=== PATIENT | male | born 1940 | race Caucasian/White ===

== ENCOUNTER 2018-11-14 00:24 | Observation (INO) | payer MEDICARE ==
[2018-11-14 00:34] VITALS: RESP 18
--- NOTE | 2018-11-14 01:10 | ED ---
Chest Pain HPI - General Chief Complaint: Chest Pain Stated Complaint: Weakness, Chest Discomfort Time Seen by Provider: 11/14/18 00:42 Source: patient, family Mode of arrival: ambulatory Limitations: no limitations - History of Present Illness Initial Comments: Everardo is a 77-year-old gentleman who presents to the emergency department today for evaluation of chest pressure and lightheadedness. Patient reports he woke from sleep around midnight to use the restroom upon getting up to walk to the restroom patient reports he felt some tightness in his chest and felt very lightheaded. Patient has no history of any cardiac disease but became concerned by these symptoms and came to the ER. Patient reports that upon resting in the ER agustorney he's feeling much better. - Related Data Allergies Allergy/AdvReac Type Severity Reaction Status Date / Time No Known Allergies Allergy Verified 11/14/18 00:34 Review of Systems ROS Statement: Those systems with pertinent positive or pertinent negative responses have been documented in the HPI. ROS Other: All systems not noted in ROS Statement are negative. EKG Findings - EKG Comments: EKG Findings:: EKG was obtained due to complaint of chest pressure, EKG was obtained at 12:42 AM, rate is 76 rhythm is sinus with an AV block as well as bifascicular block. AZ is prolonged to 10, QRS is 108, QTC is 427. There is no acute ST elevations or depressions there is no evidence of acute ischemia or infarction. There are no previous EKGs in our system for comparison. Past Medical History Past Medical History: No Reported History History of Any Multi-Drug Resistant Organisms: None Reported Past Surgical History: Hernia Repair, Orthopedic Surgery Past Psychological History: No Psychological Hx Reported Smoking Status: Never smoker Past Alcohol Use History: None Reported Past Drug Use History: None Reported General Exam Limitations: no limitations Course Vital Signs 11/14/18 11/14/18 00:29 01:15 Temperature 97.7 F Pulse Rate 83 71 Respiratory 18 18 Rate Blood Pressure 166/86 168/98 O2 Sat by Pulse 96 97 Oximetry Chest Pain MDM - Core Measures AMI Core Measures Followed: Yes - MDM Patient was seen and evaluated history is obtained from the patient and sinuses 77-year-old gentleman who experienced chest pressure and lightheadedness when ambulating. He has no cardiac history EKG does show a prolonged AZ and bifascicular block with no previous for comparison. This patient given his age is very high risk for cardiac etiology of his chest pressure therefore we will plan observation area patient care was discussed with Sound physician Dr. Mackenzie per patient's primary care physician preference. He agrees with plan for admission for cardiac rule out. Disposition Clinical Impression: Chest pain Disposition: ADMITTED IP TO THIS HOSP Condition: Stable Is patient prescribed a controlled substance at d/c from ED?: No
[2018-11-14] MEDS ORDERED: NITROGLYCERIN SL TABS 0.4 MG TAB SUBLINGUAL PRN (01:23)
[2018-11-14] MEDS ORDERED: ASPIRIN 81 MG PO STA (01:23)
[2018-11-14 01:30] LABS: ALT 18 U/L (21-72); AST 22 U/L (17-59); African American GFR (CKD) >90 (>60 ml/min/1.73 sqM); Albumin 4.5 g/dL (3.5-5.0); Alkaline Phosphatase 106 U/L (38-126); Anion Gap 10 mmol/L; Blood Urea Nitrogen 17 mg/dL (9-20); Carbon Dioxide 27 mmol/L (22-30); Chloride 105 mmol/L (98-107); Glucose 105 mg/dL (74-99); Magnesium 2.1 mg/dL (1.6-2.3); Potassium 3.9 mmol/L (3.5-5.1); Sodium 142 mmol/L (137-145); Total Bilirubin 0.5 mg/dL (0.2-1.3); Total Protein 7.4 g/dL (6.3-8.2)
[2018-11-14 01:31] LABS: Basophils # (A) 0.1 k/uL (0-0.2); Basophils % (A) 1 %; Eosinophils # (A) 0.2 k/uL (0-0.7); Eosinophils % (A) 3 %; HCT 48.7 % (39.0-53.0); HGB 16.8 gm/dL (13.0-17.5); Lymphocytes # (A) 2.5 k/uL (1.0-4.8); Lymphocytes % (A) 38 %; MCH 32.7 pg (25.0-35.0); MCHC 34.4 g/dL (31.0-37.0); MCV 95.2 fL (80.0-100.0); Mean Platelet Volume 6.4; Monocytes # (A) 0.6 k/uL (0-1.0); Monocytes % (A) 9 %; Neutrophils # (A) 3.1 k/uL (1.3-7.7); Neutrophils % (A) 47 %; Partial Thromboplastin Time 26.1 sec (22.0-30.0); Platelet Count 310 k/uL (150-450); Prothrombin Time 10.6 sec (9.0-12.0); RBC 5.12 m/uL (4.30-5.90); RDW 12.6 % (11.5-15.5); WBC 6.5 k/uL (3.8-10.6)
--- NOTE | 2018-11-14 02:03 | XR ---
EXAM: XR Chest, 2 Views CLINICAL HISTORY: ITS.REASON XR Reason: Chest Pain TECHNIQUE: Frontal and lateral views of the chest. COMPARISON: No relevant prior studies available. IMPRESSION: Normal heart. No consolidation or pleural effusion. 6-9 posterior right-sided rib fractures, age indeterminate.
[2018-11-14] MEDS ORDERED: amLODIPine 5 MG TAB PO SCH (02:30)
--- NOTE | 2018-11-14 02:38 | P.HPIM ---
History of Present Illness H&P Date: 11/14/18 Chief Complaint: chest pain 77-year-old male without significant past medical history Patient comes in today due to sudden onset chest pain. He reports that he went to bed feeling fine around 10 PM. However he woke up in the middle of night to the bathroom this when he felt chest pressure he rated it as 3-5 out of 10 in severity and felt very lightheaded however denies any associated nausea vomiting sweating or heart racing. Pain was initially retrosternal and then started radiating to both right and left side. Patient was concerned and decided come to the hospital for evaluation. He otherwise denies any cardiac history he reports that he had some cardiac testing many years ago which came back negative. Denies any history of diabetes kidney problems are hyperlipidemia denies any history of hypertension he doesn't take any medications at home. Patient otherwise denies any abdominal pain nausea vomiting or GI bleeding. Initial workup in the ED was negative patient admitted for chest pain to rule out acute cardiac syndrome Review of Systems Pertinent positives as noted in HPI. All other systems were reviewed and are neg ative Past Medical History Past Medical History: No Reported History History of Any Multi-Drug Resistant Organisms: None Reported Past Surgical History: Hernia Repair, Orthopedic Surgery Past Psychological History: No Psychological Hx Reported Smoking Status: Never smoker Past Alcohol Use History: None Reported Past Drug Use History: None Reported - Past Family History Family Additional Family Medical History / Comment(s): Denies family history of CAD Medications and Allergies Allergies Allergy/AdvReac Type Severity Reaction Status Date / Time No Known Allergies Allergy Verified 11/14/18 00:34 Physical Exam Vitals: Vital Signs Temp Pulse Resp BP Pulse Ox 11/14/18 01:15 71 18 168/98 97 11/14/18 00:29 97.7 F 83 18 166/86 96 Intake and Output 11/13/18 11/13/18 11/14/18 14:59 22:59 06:59 Other: Weight 72.575 kg Constitutional: No acute distress, conversant, pleasant Eyes: Anicteric sclerae, moist conjunctiva, no lid-lag Pupils equal round reactive to light ENMT: NC/AT Oropharynx clear, no erythema, or exudates Neck: Supple, FROM, no masses, or JVD No carotid bruits No thyromegaly Lungs: Clear to auscultation Clear to percussion Normal respiratory effort, no accessory muscle use Cardiovascular: Heart regular in rate and rhythm, No murmurs, gallops, or rubs No peripheral edema Abdominal: Soft Nontender, no guarding, rebound or rigidity Abdomen moving with respiration Normoactive bowel sounds No hepatomegaly, No splenomegaly No palpable mass No abdominal wall hernia noted Skin: Normal temperature, tone, texture, turgor No induration No subcutaneous nodules No rash, lesions No ulcers Extremities: No digital cyanosis No clubbing Pedal pulses intact and symmetrical Radial pulses intact and symmetrical No calf tenderness Psychiatric: Alert and oriented to person, place and time Appropriate affect fair judgement Neuro Muscles Strength 5/5 in all 4 extremities Sensation to light touch grossly present throughout Cranial nerves II-XII grossly intact No focal sensory deficits Lymphatics: no palpable cervical or supraclavicular , or inguinal lymph nodes Results CBC & Chem 7: 11/14/18 01:00 11/14/18 01:00 Labs: Abnormal Lab Results - Last 24 Hours (Table) 11/14/18 Range/Units 01:00 Glucose 105 H (74-99) mg/dL ALT 18 L (21-72) U/L Assessment and Plan Assessment: 77-year-old male with no past medical history admitted under observation with anticipated length of stay less than 2 midnights for chest pain to rule out acute coronary syndrome patient also have elevated blood pressure Plan: Chest pain rule out ACS EKG showed normal sinus rhythm Initial troponins negative Cardiac monitoring Trend cardiac enzymes Continue with aspirin Check lipid profile Cardiology consult Nitro when necessary Elevated blood pressure without diagnosis of hypertension Start patient on low-dose amlodipine 2.5 mg CODE STATUS: Full code DVT prophylaxis: Heparin subcu 3 times a day* Discussed with: Patient, ER, RN Anticipated length of stay of less than [address]: Home A total of 60 minutes was spent on the care of this complex patient more than 50% of the time was spent in counseling and care coordination.
--- NOTE | 2018-11-14 02:41 | P.HPADDEND ---
H&P Addendum H&P Addendum Date: 11/14/18 Advanced Care Planning Active diagnoses: Chest pain rule out acute cardiac syndrome Background: The patient was admitted for treatment of chest pain atypical features rule out acute coronary syndrome. Confirmation and clarification of wishes upon admission. Discussion: Person(s) present and participating in discussion: The patient, and myself Summary: I had a discussion with the patient who has advanced age without any other medical problems. However he lives alone he is able to take care of himself. Patient was not interested in any rehab placement or home health care if needed. He reports that he's feeling fine he is able to manage his own needs at home. He has his son who checks on him. I explained to the patient will do some workup to rule out acute coronary syndrome due to concerns with the atypical chest pain that he was experiencing. Patient elected to be a full code in case of cardiopulmonary arrest and named his son Kalia as a surrogate decision-maker. Patient is hoping that he will get better and be discharged home as soon as possible. Time spent: Total time spent face to face in education and discussion directly related to advanced care plannin minutes
[2018-11-14 03:53] VITALS: BMI 26.6
[2018-11-14] MEDS ORDERED: PANTOPRAZOLE 40 MG TABLET PO SCH (07:30)
[2018-11-14] MEDS ORDERED: HEPARIN SODIUM,PORCINE 5,000 UNIT/ML 1 ML VIAL SQ SCH (08:00)
--- NOTE | 2018-11-14 10:25 | ECHOF ---
Referral Reason:chest pain MEASUREMENTS -------- HEIGHT: 165.1 cm WEIGHT: 72.6 kg BP: 137/77 RVIDd: 3.1 cm (< 3.3) IVSd: 1.3 cm (0.6 - 1.1) LVIDd: 3.8 cm (3.9 - 5.3) LVPWd: 1.3 cm (0.6 - 1.1) IVSs: 1.7 cm LVIDs: 2.6 cm LVPWs: 1.8 cm LA Diam: 2.8 cm (2.7 - 3.8) LAESV Index (A-L): 20.24 ml/m Ao Diam: 3.6 cm (2.0 - 3.7) AV Cusp: 2.1 cm (1.5 - 2.6) MV EXCURSION: 14.273 mm (> 18.000) MV EF SLOPE: 47 mm/s (70 - 150) EPSS: 0.4 cm MV E Oscar: 0.86 m/s MV DecT: 237 ms MV A Oscar: 0.90 m/s MV E/A Ratio: 0.96 RAP: 5.00 mmHg RVSP: 33.67 mmHg FINDINGS -------- Sinus rhythm. This was a technically adequate study. The left ventricular size is normal. There is mild concentric left ventricular hypertrophy. Overa ll left ventricular systolic function is normal with, an EF between 60 - 65 %. The right ventricle is normal in size. Normal LA size by volume 22+/-6 ml/m2. The right atrium is normal in size. Interatrial and interventricular septum intact. The aortic valve is trileaflet and appears structurally normal. Mild mitral annular calcification present. There is trace to mild mitral regurgitation. Mild tricuspid regurgitation present. There is borderline pulmonary hypertension. The right ventr icular systolic pressure, as measured by Doppler, is 33.67mmHg. Trace/mild (physiologic) pulmonic regurgitation. The aortic root size is normal. Normal inferior vena cava with normal inspiratory collapse consistent with estimated right atrial pre ssure of 5 mmHg. There is no pericardial effusion. CONCLUSIONS -------- 1. Sinus rhythm. 2. This was a technically adequate study. 3. The left ventricular size is normal. 4. There is mild concentric left ventricular hypertrophy. 5. Overall left ventricular systolic function is normal with, an EF between 60 - 65 %. 6. The right ventricle is normal in size. 7. Normal LA size by volume 22+/-6 ml/m2. 8. The right atrium is normal in size. 9. Interatrial and interventricular septum intact. 10. The aortic valve is trileaflet and appears structurally normal. 11. Mild mitral annular calcification present. 12. There is trace to mild mitral regurgitation. 13. Mild tricuspid regurgitation present. 14. There is borderline pulmonary hypertension. 15. The right ventricular systolic pressure, as measured by Doppler, is 33.67mmHg. 16. Trace/mild (physiologic) pulmonic regurgitation. 17. The aortic root size is normal. 18. Normal inferior vena cava with normal inspiratory collapse consistent with estimated right atrial pressure of 5 mmHg. 19. There is no pericardial effusion. FIELD CROP HARVEST WORKER: Catarina Murray RDCS
[2018-11-14 11:15] LABS: Cholesterol 250 mg/dL (<200); HDL Cholesterol 39 mg/dL (40-60); LDL Cholesterol,Calculated 136 mg/dL (0-99); Triglycerides 373 mg/dL (<150)
--- NOTE | 2018-11-14 11:29 | ECHOS ---
STRESS ECHOCARDIOGRAM DATE OF SERVICE: 11/14/2018 INDICATIONS: Chest pain. MEDICATIONS: BASELINE HEART RATE: 72 BASELINE BLOOD PRESSURE: 161/87 MAXIMUM HEART RATE: 157 MAXIMUM BLOOD PRESSURE: 205/68 85% MPHR: 144 100% MPHR: 144 METS: 7 MAXIMUM STAGE REACHED: II TOTAL EXERCISE TIME: 6 minutes CLINICAL INFORMATION: Baseline EKG shows sinus rhythm, normal axis, normal intervals. Patient exercised on Elvis protocol for a total of 6 minutes, achieving 7 METs, 100% of predicted maximal heart rate without chest pain or diagnostic ST-segment depression. Baseline echo shows normal left ventricular size, wall motion and systolic function. Postexercise, there is normal hyperdynamic response of all segments of myocardium noted. CONCLUSIONS: 1. Average exercise tolerance. 2. Negative stress test by EKG criteria. 3. Negative stress echo. MMODL / IJN: [id number] /
[2018-11-14 11:45] VITALS: BP 157/93; PULSE 93; TEMP 98
--- NOTE | 2018-11-14 12:32 | P.DS ---
Providers Date of admission: 11/14/18 01:27 Expected date of discharge: 11/14/18 Attending physician: Vasu Vieyra MD Consults: 11/14/18 01:24 Consult Physician Urgent Consulting Provider: [facility] Consult Reason/Comments: chest pain - EKG with bifasicular block, no previous Do you want consulting provider notified?: Yes, Notify in am Primary care physician: Johana Haley MD Hospital Course: 77-year-old male without significant past medical history Patient comes in today due to sudden onset chest pain. He reports that he went to bed feeling fine around 10 PM. However he woke up in the middle of night to the bathroom this when he felt chest pressure he rated it as 3-5 out of 10 in severity and felt very lightheaded however denies any associated nausea vomiting sweating or heart racing. Pain was initially retrosternal and then started radiating to both right and left side. Patient was concerned and decided come to the hospital for evaluation. Troponin was less than 0.012 x 3 with EKG showing sinus rhythm, 1st degree AV block, RBBB, L posterior fascicular block. Cardiology was consulted and recommended Echo and stress test. Echo showed EF 60-65% with mild concentric LVH. Stress test was negative for inducible ischemia. Patient was seen and examined. No acute events overnight. No more chest pain. No shortness of breath or palpitations. Looking forward to going home. Patient is in no acute distress. Heart is regular rate and rhythm. No mumurs, rubs or gallops. No lower extremity edema. Lungs are clear to auscultation. Assessment and Plan Chest pain HLDA Elevated BP ACS ruled out. Stress negative. Cleared by Cardiology. States did not have good experience with statins in the past. Will defer to PCP. Started on Amlodipine 2.5 mg PO QD. Pertinent Studies: CXR, Echo, Stress Patient Condition at Discharge: Stable Plan - Discharge Summary Discharge Rx Participant: No New Discharge Prescriptions: New Aspirin [Adult Low Dose Aspirin EC] 81 mg PO DAILY #30 tablet. amLODIPine [Norvasc] 2.5 mg PO DAILY #30 tab Discharge Medication List Aspirin [Adult Low Dose Aspirin EC] 81 mg PO DAILY #30 tablet. 11/14/18 [Rx] amLODIPine [Norvasc] 2.5 mg PO DAILY #30 tab 11/14/18 [Rx] Follow up Appointment(s)/Referral(s): Johana Haley MD [Primary Care Provider] - 1-2 days Activity/Diet/Wound Care/Special Instructions: Diet: Heart healthy FU PCP within 1-2 days of discharge. Take all medications as advised. Discharge Disposition: HOME SELF-CARE
--- NOTE | 2018-11-14 12:41 | P.CRDCN ---
History of Present Illness History of present illness: This is a pleasant 77-year-old male past medical history significant for dyslipidemia. He denies prior history of coronary artery disease, hypertension or diabetes mellitus. He has not followed with a insurance sales manager for any reason. We have been asked to see him in consultation secondary to chest discomfort. He states he went to bed last night at 1015 then woke up at midnight to go the bathroom. When he got up to walk to the bathroom he felt a pressure across the chest that was described as a tight viselike squeezing sensation. There was no radiation to the arm, back, neck or jaw. His chest discomfort was associated with weakness and mildly warm sensation, no diaphores is. After going to the restroom he attempted to lay down to sleep however he couldn't get comfortable. His systems lasted for approximately 40 minutes and ultimately subsided on their own. No specific aggravating or alleviating factor. He has had no further symptoms since arriving to the hospital. EKG reveals sinus mechanism, right bundle branch block, first-degree AV block and left anterior fascicular block. Chest x-ray negative for acute cardiopulmonary process. Laboratory data reviewed, CBC unremarkable. Sodium 142, potassium 3.9, creatinine 0.9, cardiac enzymes negative 2, LDL 136 and HDL 39. He currently takes no cardiac medications. At the time of my exam: CONSTITUTIONAL: Denies fever. Denies chills. EYES: Denies blurred vision. Denies vision changes. Denies eye pain. EARS, NOSE, MOUTH & THROAT: Denies headache. Denies sore throat. Denies ear pain. CARDIOVASCULAR: Denies chest pain. Denies shortness of breath. Denies orthopnea. Denies PND. Denies palpitations. RESPIRATORY: Denies cough. GASTROINTESTINAL: Denies abdominal pain. Denies diarrhea. Denies constipation. Denies nausea. Denies vomiting. MUSCULOSKELETAL: Denies myalgias. INTEGUMENTARY: Denies pruitis. Denies rash. NEUROLOGIC: Denies numbness. Denies tingling. Denies weakness. PSYCHIATRIC: Denies anxiety. Denies depression. ENDOCRINE: Denies fatigue. Denies weight change. Denies polydipsia. Denies polyurina. GENITOURINARY: Denies burning, hematuria or urgency with micturation. HEMATOLOGIC: Denies history of anemia. Denies bleeding. Blood pressure 137/77 heart rate 62 afebrile maintaining oxygen saturation on room air GENERAL: This is a 77-year-old male in no apparent distress at the time of my examination. HEENT: Head is atraumatic, normocephalic. Pupils are equal, round. Sclerae anicteric. Conjunctivae are clear. Mucous membranes of the mouth are moist. Neck is supple. There is no jugular venous distention. No carotid bruit is heard. LUNGS: Clear to auscultation no wheezes, rales or rhonchi. No chest wall tenderness is noted on palpation or with deep breathing. HEART: Regular rate and rhythm with murmur at the left sternal border, no rubs or gallops. S1 and S2 heard. ABDOMEN: Soft, nontender. Bowel sounds are heard. No organomegaly noted. EXTREMITIES: No evidence of peripheral edema and no calf tenderness noted. VASCULAR: Radial and dorsalis pedis pulses palpated, no evidence of clubbing. NEUROLOGIC: Patient is awake, alert and oriented x3. ASSESSMENT Chest pain, atypical. An acute coronary event has been ruled out. Dyslipidemia Hypertension PLAN An acute coronary event has been ruled out. Obtain 2-D echocardiogram and Doppler study to assess cardiac structure and function. Perform stress echocardiogram to assess for stress-induced ischemia. Initiate on atorvastatin 40 mg daily. Check liver function in 2 weeks. If stress test is normal he may be discharged from a cardiac perspective. Follow-up in the office with Dr. Payan in 2 weeks. Thank you kindly for this consultation. Nurse Practitioner note has been reviewed, I agree with a documented findings and plan of care. Patient was seen and examined. Past Medical History Past Medical History: Hyperlipidemia History of Any Multi-Drug Resistant Organisms: None Reported Past Surgical History: Hernia Repair, Orthopedic Surgery Past Anesthesia/Blood Transfusion Reactions: No Reported Reaction Past Psychological History: No Psychological Hx Reported Smoking Status: Never smoker Past Alcohol Use History: None Reported Past Drug Use History: None Reported - Past Family History Family Additional Family Medical History / Comment(s): Denies family history of CAD Medications and Allergies Home Medications Medication Instructions Recorded Confirmed Type Aspirin [Adult Low Dose Aspirin EC] 81 mg PO DAILY #30 tablet. 11/14/18 Rx Atorvastatin [Lipitor] 40 mg PO DAILY #90 tablet 11/14/18 Rx amLODIPine [Norvasc] 2.5 mg PO DAILY #30 tab 11/14/18 Rx Allergies Allergy/AdvReac Type Severity Reaction Status Date / Time No Known Allergies Allergy Verified 11/14/18 07:20 Physical Exam Vitals: Vital Signs Temp Pulse Pulse Resp BP BP Pulse Ox 11/14/18 07:10 97.5 F L 62 18 137/77 96 11/14/18 03:40 97.6 F 62 18 146/76 95 11/14/18 03:30 62 18 11/14/18 03:12 97.7 F 86 18 155/87 95 11/14/18 02:30 66 18 166/88 11/14/18 01:15 71 18 168/98 97 11/14/18 00:29 97.7 F 83 18 166/86 96 Intake and Output 11/13/18 11/14/18 11/14/18 22:59 06:59 14:59 Other: Weight 72.575 kg Results 11/14/18 01:00 11/14/18 01:00 Cardiac Enzymes 11/14/18 11/14/18 11/14/18 Range/Units 01:00 01:00 07:00 AST 22 (17-59) U/L Troponin I <0.012 <0.012 (0.000-0.034) ng/mL Coagulation 11/14/18 Range/Units 01:00 PT 10.6 (9.0-12.0) sec APTT 26.1 (22.0-30.0) sec CBC 11/14/18 Range/Units 01:00 WBC 6.5 (3.8-10.6) k/uL RBC 5.12 (4.30-5.90) m/uL Hgb 16.8 (13.0-17.5) gm/dL Hct 48.7 (39.0-53.0) % Plt Count 310 (150-450) k/uL Comprehensive Metabolic Panel 11/14/18 Range/Units 01:00 Sodium 142 (137-145) mmol/L Potassium 3.9 (3.5-5.1) mmol/L Chloride 105 (98-107) mmol/L Carbon Dioxide 27 (22-30) mmol/L BUN 17 (9-20) mg/dL Creatinine 0.90 (0.66-1.25) mg/dL Glucose 105 H (74-99) mg/dL Calcium 10.0 (8.4-10.2) mg/dL AST 22 (17-59) U/L ALT 18 L (21-72) U/L Alkaline Phosphatase 106 (38-126) U/L Total Protein 7.4 (6.3-8.2) g/dL Albumin 4.5 (3.5-5.0) g/dL Current Medications Generic Name Dose Route Start Last Admin Trade Name Freq PRN Reason Stop Dose Admin Amlodipine Besylate 2.5 mg 11/14/18 02:30 11/14/18 04:00 Norvasc PO Not Given DAILY [facility] Aspirin 325 mg 11/15/18 09:00 Aspirin PO DAILY [facility] Heparin Sodium (Porcine) 5,000 unit 11/14/18 08:00 Heparin SQ Q8HR [facility] Nitroglycerin 0.4 mg 11/14/18 01:23 Nitrostat SUBLINGUAL Q5M PRN Chest Pain Pantoprazole Sodium 40 mg 11/14/18 07:30 Protonix PO AC-BRKFST [facility] Intake and Output 11/13/18 11/14/18 11/14/18 22:59 06:59 14:59 Other: Weight 72.575 kg 11/14/18 01:00 11/14/18 01:00
[2018-11-15] MEDS ORDERED: ASPIRIN 325 MG TAB PO SCH (09:00)
[2018-11-15] MEDS ORDERED: ASPIRIN 81 MG PO SCH (09:00)
== END 2018-11-14 16:47 | disposition home or self-care (01) ==
LOC: EC 00:24 → 1SOBS 01:27
PROVIDERS: ADMIT Internal Medicine; ATTEND Internal Medicine
DX: R07.89 Other chest pain (principal); E78.5 Hyperlipidemia, unspecified; R03.0 Elevated blood-pressure reading, without diagnosis of hypertension; R42 Dizziness and giddiness; R53.1 Weakness; Z79.82 Long term (current) use of aspirin; Z79.899 Other long term (current) drug therapy
CPT/HCPCS: 99285; 36415; 93005; 93306; 93351; 80061; 80053; 83735; 84484; 85025; 85610; 85730; 71046; G0378

== ENCOUNTER → 2019-08-18 | Outpatient (CLI) | payer MEDICARE | END | disposition home or self-care (01) | LOC: LABWHC1 13:28 | PROVIDERS: ATTEND Internal Medicine Gastroenterology | DX: Z11.59 Encounter for screening for other viral diseases (principal) ==

== ENCOUNTER → 2019-08-21 | Day surgery (SDC) | payer MEDICARE ==
[2019-08-20 09:40] VITALS: BMI 25.2
[~2019-08-21] MED LIST: LACTATED RINGERS 1,000 ML IV ONE; LACTATED RINGERS 1,000 ML IV SCH; LIDOCAINE 1% (10MG/ML) FOR IV START INTRADERMA ONE; PROPOFOL 10 MG/ML 20 ML VIAL IV ONE
[2019-08-21 09:10] VITALS: TEMP 97.8
--- NOTE | 2019-08-21 10:22 | P.PCN ---
Date of Procedure: 08/21/19 Procedure(s) Performed: BRIEF HISTORY: Patient is a 78-year-old pleasant male scheduled for an elective colonoscopy as a part of screening for colorectal neoplasia. PROCEDURE PERFORMED: Colonoscopy with biopsy. PREOPERATIVE DIAGNOSIS: Sreening for colon cancer. IV sedation per Anesthesia. PROCEDURE: After informed consent was obtained, the patient, was brought into the endoscopy unit. IV sedation was administered by Anesthesia under continuous monitoring. Digital rectal examination was normal. Initially the Olympus CF-160 flexible video colonoscope was then inserted in the rectum, gradually advanced into the cecum without any difficulty. Careful examination was performed as the scope was gradually being withdrawn. Ileocecal valve and the appendiceal orifice were visualized and appeared normal. Prep was excellent. The base of the cecum there was a 2 mm polyp that was removed by cold biopsy. Mucosa of the cecum, ascending colon, transverse colon, descending colon, sigmoid colon, and rectum appeared normal. Scattered left-sided diverticulosis seen. Retroflexion was performed in the rectum and all internal were seen. The patient tolerated the procedure well. IMPRESSION: 2 mm cecal polyp status post removal by cold biopsy Scattered left sided diverticulosis Small internal hemorrhoids RECOMMENDATIONS: Findings of this examination were discussed with the patient as well as his family. He was advised to follow with the biopsy results. He will continue with a high-fiber diet and take fiber supplements a regular basis.
[2019-08-21 10:24] VITALS: RESP 16
[2019-08-21 10:39] VITALS: BP 117/66; PULSE 78
== END ==
LOC: ORWHC2ENDO 08:48
PROVIDERS: ATTEND Internal Medicine Gastroenterology
DX: Z12.11 Encounter for screening for malignant neoplasm of colon (principal); D12.0 Benign neoplasm of cecum; K57.30 Diverticulosis of large intestine without perforation or abscess without bleeding; K64.8 Other hemorrhoids; I10 Essential (primary) hypertension; Z79.82 Long term (current) use of aspirin; Z79.899 Other long term (current) drug therapy
CPT/HCPCS: 45380; J2704; 88305

== ENCOUNTER → 2021-05-10 | Outpatient (CLI) | payer MEDICARE ==
[2021-05-10 11:31] LABS: ALT 20 U/L (10-49); AST 17 U/L (14-35); African American GFR (CKD) 96.7 (60.0-200.0); Albumin 4.4 g/dL (3.8-4.9); Albumin/Globulin Ratio 2.01 (1.60-3.17); Alkaline Phosphatase 94 U/L (41-126); BUN/Creat Ratio 18.88 Ratio (12.00-20.00); Blood Urea Nitrogen 15.8 mg/dL (9.0-27.0); Calcium 9.6 mg/dL (8.7-10.3); Carbon Dioxide 25.3 mmol/L (20.0-27.5); Chloride 104 mmol/L (96-109); Chol/HDL Ratio 6.04 Ratio; Globulin 2.2 g/dL (1.6-3.3); Glucose 106 mg/dL (70-110); LDL Cholesterol,Calculated 166.2 mg/dL (0.0-131.0); Non-African American GFR(CKD) 83.4 (60.0-200.0); Potassium 4.3 mmol/L (3.5-5.5); Sodium 141 mmol/L (135-145); Total Protein 6.5 g/dL (6.2-8.2)
== END | disposition home or self-care (01) ==
LOC: LABWHC1 07:23
PROVIDERS: ATTEND Nurse Practitioner Adult Health
DX: Z00.00 Encounter for general adult medical examination without abnormal findings (principal); I10 Essential (primary) hypertension; K21.9 Gastro-esophageal reflux disease without esophagitis
CPT/HCPCS: 80061; 80053; 36415; G0103

== ENCOUNTER → 2021-07-27 | Outpatient (CLI) | payer MEDICARE ==
--- NOTE | 2021-07-28 07:16 | US ---
EXAMINATION TYPE: US carotid duplex BILAT DATE OF EXAM: 07/27/2021 COMPARISON: NONE CLINICAL HISTORY: I65.23 CAROTID STENOSIS. EXAM MEASUREMENTS: RIGHT: Peak Systolic Velocity (PSV) cm/sec ----- Right CCA: 101 ----- Right ICA: 101 ----- Right ECA: 130 ICA/CCA ratio: 1.0 RIGHT: End Diastole cm/sec ----- Right CCA: 22.4 ----- Right ICA: 25.1 ----- Right ECA: 14.3 LEFT: Peak Systolic Velocity (PSV) cm/sec ----- Left CCA: 106 ----- Left ICA: 203 ----- Left ECA: 255 ICA/CCA ratio: 1.92 LEFT: End Diastole cm/sec ----- Left CCA: 24.6 ----- Left ICA: 37.1 ----- Left ECA: 31.7 VERTEBRALS (direction of flow): Right Vertebral: Antegrade Left Vertebral: Antegrade Rhythm: Normal Mild plaque bilateral bifurcations. increased velocities left ICA and left ECA IMPRESSION: No evidence for hemodynamically significant stenosis. Criteria for Assigning % of Stenosis / Diameter reduction (Estimation based on the indirect measurements of the internal carotid artery velocities (ICA PSV). 1. Normal (no stenosis)=ICA PSV < 125 cm/s: ratio < 2.0: ICA EDV<40 cm/s. 2. Less than 50% stenosis=ICA PSV < 125 cm/s: ratio < 2.0: ICA EDV<40 cm/s. 3. 50 to 69% stenosis=ICA PSV of 125 to 230 cm/s: ration 2.0 ? 4.0: ICA EDV 40-100 cm/s. 4. Greater than 70% stenosis to near occlusion= ICA PSV > 230 cm/s: ratio > 4.0: ICA EDV > 100 cm/s. 5. Near occlusion= ICA PSV velocities may be low or undetectable: variable ratio and ICA EDV. 6. Total occlusion=unable to detect flow.
== END | disposition home or self-care (01) ==
LOC: RADUSWWP 16:10
PROVIDERS: ATTEND Internal Medicine
DX: I65.23 Occlusion and stenosis of bilateral carotid arteries (principal)
CPT/HCPCS: 93880

== ENCOUNTER → 2022-01-25 | Outpatient (CLI) | payer MEDICARE | END | disposition home or self-care (01) | LOC: LABPAT 14:46 | PROVIDERS: ATTEND Orthopaedic Surgery | DX: Z22.322 Carrier or suspected carrier of Methicillin resistant Staphylococcus aureus (principal); M17.12 Unilateral primary osteoarthritis, left knee | CPT/HCPCS: 87070 ==

== ENCOUNTER 2022-02-19 08:19 | Day surgery (SDC) | payer MEDICARE ==
[2022-02-14 11:36] VITALS: BMI 25.8
--- NOTE | 2022-02-18 23:05 | HP ---
HISTORY AND PHYSICAL DATE OF SURGERY: 02/19/2022. HISTORY OF PRESENT ILLNESS: Everardo Pearson is an 81-year-old patient seen with symptomatic left knee osteoarthritis. We discussed options for treatment. He elected to proceed with left total knee arthroplasty. Consent was obtained. Medical clearance was provided by Dr. Adams. PAST MEDICAL HISTORY: Hypertension, diverticulitis. PAST SURGICAL HISTORY: Left knee arthroscopy, carpal tunnel release, herniorrhaphy. DAILY MEDICATIONS: 1. Amlodipine. 2. Aspirin. SOCIAL HISTORY: Denies tobacco use. PHYSICAL EVALUATION OF THE LEFT KNEE: Range of motion 0 to 135. Tenderness to medial joint line. Crepitus, medial patellofemoral compartment range of motion. Pain with patellofemoral compression. Ligaments stable. Hip rotation is without pain. His distal neurovascular exam is intact. RADIOGRAPHS: Radiographs of the left knee reveal severe osteoarthritic changes. IMPRESSION: 1. Left knee osteoarthritis. 2. Hypertension. PLAN: Left total knee arthroplasty. MMODL / IJN: [id number] /
[~2022-02-19 08:19] MED LIST changes: +ACETAMINOPHEN TAB 500 MG TAB PO PRN; +DEXAMETHASONE SOD PHOSPHATE 4 MG/ML 1 ML VIAL IV ONE; +HYDROmorphone 0.5 MG/0.5 ML SYRINGE IVP PRN; -LACTATED RINGERS 1,000 ML IV ONE; -LACTATED RINGERS 1,000 ML IV SCH; -LIDOCAINE 1% (10MG/ML) FOR IV START INTRADERMA ONE; +LIDOCAINE 1% (10MG/ML) FOR IV START INTRADERMA PRN; +MELOXICAM 7.5 MG TAB PO PRN; +ONDANSETRON 4 MG/2 ML VIAL IVP PRN; -PROPOFOL 10 MG/ML 20 ML VIAL IV ONE; +TRANEXAMIC ACID IN NACL,ISO-OS 1,000 MG in SALINE 1 100ML.BAG IVPB PRN
[2022-02-19] MEDS: LACTATED RINGERS 1,000 ML IV SCH (09:01)
[2022-02-19] MEDS ORDERED: MIDAZOLAM 2 MG/2 ML VIAL IV ONE (09:14)
--- NOTE | 2022-02-19 09:45 | P.ANPRN ---
Procedure Note - Anesthesia - Nerve Block Performed Left Adductor Canal Infusion Time Out Performed: Yes (913) Date of Procedure: 02/19/22 Procedure Start Time: : Procedure Stop Time: :32 Location of Patient: PreOp Indication: Acute Post-Operative Pain, Requested by Surgeon Sedation Type: Sedate with meaningful contact maintained Preparation: Sterile Prep, Sterile Dressing Position: Supine Catheter: Indwelling Needle Types: On-Q Needle Gauge: 18 Ultrasound used to visualize needle placement: Yes Ultrasound used to observe medication spread: Yes Injectate: 0.5% Ropivacaine (see comment for volume) Blood Aspirated: No Pain Paresthesia on Injection Noted: No Resistance on Injection: Normal Image Stored and Saved: Yes Events: Uneventful and Well Tolerated (20 mL of block solution containing 10 mL of 0.5% ropivacaine mixed with 10 ML of preservative-free normal saline) Left iPack Single Time Out Performed: No (913) Date of Procedure: 02/19/22 Procedure Start Time: Procedure Stop Time: :32 Location of Patient: PreOp Indication: Acute Post-Operative Pain, Requested by Surgeon Sedation Type: Sedate with meaningful contact maintained Preparation: Sterile Prep, Sterile Dressing Position: Supine Catheter: None Needle Types: Pajunk Needle Gauge: 21 Ultrasound used to visualize needle placement: Yes Ultrasound used to observe medication spread: Yes Injectate: 0.5% Ropivacaine (see comment for volume) Blood Aspirated: No Pain Paresthesia on Injection Noted: No Resistance on Injection: Normal Image Stored and Saved: Yes Events: Uneventful and Well Tolerated (20 mL of block solution containing 10 mL of 0.5% ropivacaine mixed with 10 ML of preservative-free normal saline, 40 MG of dexamethasone)
[2022-02-19] MEDS ORDERED: MIDAZOLAM 2 MG/2 ML VIAL ONE (09:46)
[2022-02-19] MEDS ORDERED: SODIUM CHLORIDE 0.9% (PF) 10 ML VIAL ONE (09:46)
[2022-02-19] MEDS ORDERED: ROPIVACAINE 5 MG/ML 30 ML VIAL ONE (09:46)
[2022-02-19] MEDS ORDERED: fentaNYL (PF) 50 MCG/ML 2 ML AMP ONE (09:46)
[2022-02-19] MEDS ORDERED: PROPOFOL 10 MG/ML 20 ML VIAL IV ONE (09:46)
[2022-02-19] MEDS ORDERED: GLYCOPYRROLATE 0.2 MG/ML 2 ML VIAL ONE (09:46)
[2022-02-19] MEDS ORDERED: PHENYLEPHRINE-0.9% NACL SYG 1,000 MCG/10 ML SYRINGE ONE (09:46)
[2022-02-19] MEDS ORDERED: TRANEXAMIC ACID IN NACL,ISO-OS 1,000 MG/100 ML BAG ONE (09:46)
[2022-02-19] MEDS ORDERED: DEXAMETHASONE SOD PHOSPHATE 4 MG/ML 1 ML VIAL ONE (09:46)
[2022-02-19] MEDS ORDERED: ceFAZolin 1,000 MG in SODIUM CHLORIDE 0.9% 1,000 ML IRRIGATION ONE (10:23)
[2022-02-19] MEDS ORDERED: HYDROcodone/APAP 5-325MG 1 EACH TAB PO PRN ×2 (11:35)
[2022-02-19] MEDS ORDERED: ONDANSETRON 4 MG/2 ML VIAL IVP PRN (11:35)
[2022-02-19] MEDS ORDERED: HYDROmorphone 0.5 MG/0.5 ML SYRINGE IVP PRN ×3 (11:35)
[2022-02-19] MEDS ORDERED: NALOXONE 0.4 MG/ML 1 ML VIAL IV PRN (11:35)
--- NOTE | 2022-02-19 11:35 | P.OP ---
Date of Procedure: 02/19/22 Preoperative Diagnosis: Left knee osteoarthritis Postoperative Diagnosis: Left knee osteoarthritis Procedure(s) Performed: Left total knee arthroplasty Implants: 1. Depuy attune size 6 left cruciate retaining cemented femur 2. Depuy attune size 6 fixed bearing cemented tibial baseplate 3. Depuy attune size 6 fixed bearing cruciate retaining 8mm polyethylene tibial insert 4. Depuy attune 35 mm all polyethylene cemented patella Anesthesia: regional (Adductor canal catheter, Ipack block), spinal Surgeon: Arsenio Mortensen Pairer Odds #1: Bar Mustafa Estimated Blood Loss (ml): 40 Pathology: other (Bone) Condition: stable Disposition: PACU Indications for Procedure: 81-year-old patient seen with symptomatic left knee osteoarthritis. After having treatment options discussed, he elected to proceed with total knee arthroplasty. Operative Findings: See description of procedure Description of Procedure: Patient was taken to the operative suite after having an adductor canal catheter placed by the department of anesthesia. Patient underwent a spinal anesthetic by the department of anesthesia. Patient was given preoperative IV intake antibiotics and TXA. A well-padded tourniquet was placed about the left lower extremity. The lower extremity was then prepped and draped in the normal sterile orthopedic fashion. The extremity was elevated, a tourniquet was insuf flated to 300. A standard anterior incision was made sharply through skin. Dissection was taken down through the subcutaneous soft tissues down to the extensor mechanism. A medial arthrotomy was performed, patella was everted and knee was flexed. There was advanced osteoarthritis noted. I introduced my distal intramedullary femoral drill. I then introduced the distal femoral cutting jig. Bar SHIELDS secured the cutting jig with 2 pins. I held retractors in position while Bar SHIELDS performed the distal femoral resection through the guide area we now removed her distal femoral cutting guide. We now placed our 4-in-1 femoral cutting block and positioned and it was secured with 2 pins by Bar SHIELDS while I held the block in position. The distal femoral finishing was now completed. A proximal tibial cutting guide was positioned. I held the guide in the appropriate position with both hands while Bar SHIELDS inserted stabilizing pins into the guide. Proximal tibial cut was made. We now placed a trial femoral component into position, along with an appropriate size tibial tray and insert. We now took the knee through range of motion and had full extension good flexion and good overall soft tissue balance noted. The patella was everted and stabilized with 2 towel clips held by Bar SHIELDS while I performed a flush with patellar quad tendon utilizing a fresh sawblade. We templated the patella, appropriate drill holes were made. An appropriate trial patella was positioned, knee was taken through full range of motion with the patella tracking very nicely. The trial patella was removed. Drill holes were made through the femoral component. All trial components were removed after marking off the appropriate rotation of the tibia. Retractors were now positioned along the proximal tibia. An appropriate keel punch was made with the appropriate size tibial guide by myself on Bar SHIELDS assisted by holding retractors. At this point appropriate size implants were chosen and opened. The joint was irrigated copiously with pulse lavage mechanical irrigation. The wound was irrigated with pulse lavage mechanical irrigation. We mixed antibiotic methylmethacrylate. We placed the knee into flexion. We placed multiple retractors assisted by Bar SHIELDS to expose the proximal tibia. Once the methyl methacrylate was ready, the tibial component was cemented into place removing any excess methylmethacrylate form by both myself and Bar SHIELDS. The femoral component was cemented into place removing the removing any excess methylmethacrylate performed by both myself and Bar SHIELDS. We then inserted the appropriate size polyethylene tibial insert. We made sure that it was locked into position. We took the knee into full extension, and then back in a flexion making sure we had removed any excess methylmethacrylate. The patellar component was then cemented down and secured with clamp. Excess methylmethacrylate removed. We kept the knee in full extension, patellar clamp in position until methylmethacrylate had hardened. Once it had hardened the patellar clamp was removed. The knee was taken through full range of motion. The patella tracked nicely. There was good soft tissue balancing. The tourniquet was now released. Additional hemostasis was achieved via electrocautery. A second gram of TXA was given. The wound again was irrigated with pulse lavage mechanical irrigation. The extensor mechanism was repaired with Ethibond suture . We checked the repair with range of motion and it was stable. The subcutaneous soft tissues were repaired with Vicryl in layers. The skin was approximated with pernio/Dermabond. Sterile dressings were applied followed by loose web roll and Andres bandage. The patient was transferred to a bed, and taken to recovery in stable and satisfactory condition. Bar SHIELDS assisted with this complex procedure.
[2022-02-19] MEDS ORDERED: LACTATED RINGERS 1,000 ML IV ONE (11:44)
[2022-02-19] MEDS ORDERED: ROPIVACAINE 1,100 MG, SODIUM CHLORIDE 0.9% 500 ML 330 ML, EMPTY PAIN BALL 1 EACH MISCELLANE PRN ×2 (12:14)
--- NOTE | 2022-02-19 12:23 | XR ---
EXAMINATION TYPE: XR knee limited LT DATE OF EXAM: 02/19/2022 COMPARISON: NONE TECHNIQUE: Two views submitted HISTORY: Post op FINDINGS: There is a prosthetic knee in near anatomic alignment. There is soft tissue edema and emphysema. IMPRESSION: 1. Postoperative change. Appears in near-anatomic alignment
[2022-02-19] MEDS: VIT A,C & E-LUTEIN-MINERALS 1 EACH TAB PO SCH (20:41)
[2022-02-19] MEDS: SODIUM CHLORIDE 0.9% 1,000 ML IV SCH (20:41)
[2022-02-19] MEDS: ENOXAPARIN 30 MG/0.3 ML SYRINGE SQ SCH (20:41)
[2022-02-19] MEDS ORDERED: SENNOSIDES-DOCUSATE SODIUM 1 EACH TAB PO SCH (21:00)
--- NOTE | 2022-02-20 06:57 | P.PN ---
Progress Note - Text Progress Note Date: 02/20/22 patient was seen and evaluated while sitting in his chair. Status post postop erative day 1 for left side total knee arthroplasty patient had adductor canal catheter for postop pain control. Patient rated pain at rest 2 out of 10 in severity. Patient describes pain is aching, throbbing type on the sides of the knee and back of the knee. Patient started walking with support. With activity patient pain levels are 4 out of 10 in severity. With the help of oral pain medications pain levels are tolerable. Patient denied any weakness/ numbness in lower extremities. patient denied any fever, pain over the catheter site. Physical exam: Patient vital signs stable Patient is alert awake oriented 3 responding to all questions appropriately Examination of the catheter site showed dressing intact, no leaking fluid around the catheter, no redness, no tenderness over the catheter insertion area. plan: status post postoperative day 1 for left-sided total knee arthroplasty with adductor canal catheter for pain control. Patient was discussed to continue the medication at the rate of 8 mL per hour until the pump is completely empty and instructed the patient how to discontinue the catheter.
[2022-02-20 07:14] VITALS: BP 149/80; PULSE 93; RESP 18; TEMP 97.6
[2022-02-20] MEDS: SODIUM CHLORIDE 0.9% 1,000 ML IV SCH (08:13)
[2022-02-20] MEDS: LACTATED RINGERS 1,000 ML IV SCH (08:13)
[2022-02-20] MEDS ORDERED: amLODIPine 5 MG TAB PO SCH (09:00)
[2022-02-20] MEDS ORDERED: NON FORMULARY DRUG (Omega-3/Dha/Epa/Fish Oil [Fish Oil 1,000 Mg Softgel] 1 EACH Capsule) PO SCH (09:00)
[2022-02-20] MEDS ORDERED: CHOLECALCIFEROL 25 MCG (1000 IU) TABLET PO SCH (09:00)
[2022-02-20] MEDS: ENOXAPARIN 30 MG/0.3 ML SYRINGE SQ SCH (09:16)
[2022-02-20] MEDS: VIT A,C & E-LUTEIN-MINERALS 1 EACH TAB PO SCH (09:16)
[2022-02-20 09:18] LABS: HCT 44.2 % (39.6-50.0); HGB 15.4 g/dL (13.0-17.0); MCH 32.8 pg (27.0-32.0); MCHC 34.8 g/dL (32.0-37.0); Mean Platelet Volume 9.1 fL (9.5-12.2); NRBC Per 100 WBC 0 /100 WBCS (0.0-0.0); Platelet Count 347 X 10*3/uL (140-440); RDW 12.2 % (11.5-14.5); WBC 17.66 X 10*3/uL (4.50-10.00)
--- NOTE | 2022-02-20 10:13 | P.DS ---
Providers Date of admission: 02/19/2022 Expected date of discharge: 02/20/22 Attending physician: Arsenio Mortensen Consults: 02/19/22 11:35 Consult Physician Routine Consulting Provider: Olga Adams Consult Reason/Comments: Medical management Do you want consulting provider notified?: Yes Primary care physician: Olga Adams Hospital Course: Date of admission: 02/19/2022 Date of discharge: 02/20/2022 Admission diagnosis: Left knee osteoarthritis Discharge diagnosis: Same Attending physician: Dr. Mortensen Surgical procedures: Left total knee arthroplasty Brief history: Patient is a 81-year-old male with a history of progressive primary left knee osteoarthritis. At this point patient has failed conservative treatment measures and has opted to proceed with a elective left total knee arthroplasty. Hospital course: Details of patient's surgery can be found in operative report. Patient tolerated the procedure well and was subsequently transported to orthopedic floor. Patient's orthopeidc and medical care was provided daily. Patient had daily laboratory tests performed for evaluation of overall blood counts. Patient had daily physical therapy to include strengthening range of motion as well as education with walker ambulation. Patient was treated with Lovenox for their postoperative DVT prophylaxis during their inpatient stay. Patient was noted to have a relatively uneventful postoperative course. Patient reported satisfactory pain control with oral pain medications by postoperative day 1. Patient showed satisfactory progress with physical therapy. Patient moved steadily through the program and had no difficulty meeting the goals by postoperative day 1. Given patient's otherwise satisfactory course and having met physical therapy goals, plan is to discharge patient home with health services on postoperative day 1. Discharge condition/disposition: Patient will be discharged home with health services in stable condition. Discharge medications: Instructions are given on resumption of patient's normal daily medications per primary care recommendation, in addition patient will be prescribed [place]; Colace; resume aspirin 81 mg twice a day 30 days once home. Discharge instructions: 1. Wound care and infection precautions, keep incision dry and covered while showering, no lotions, creams, moisturizers. No soaking, tubs, pools, hottubs. Do not scrub over the incision. 2. Weight-bear as tolerated with walker / cane until follow-up. 3. Ice and elevate when necessary. Do not exceed 20 minutes per hour with ice pack. 4. Utilize compression sleeve until seen at first follow up appointment. 5. Visiting nursing care. 6. Home physical therapy including home CPM. 7. Pain meds and anticoagulants per prescription. 8. Pain medication has potential to cause constipation. Increase oral fluid and fiber intake. Contact primary care provider if you have not had a bowel movement within 48 hours after discharge 9. No anti-inflammatory medication until discussed at first post operative visit, this including Motrin, Aleve, Mobic, Diclofenac. 11. Follow up with your primary care doctor 7-10 days after discharge. 12. Contact [facility] with any questions, . Assessment: Left knee osteoarthritis Procedures: Left total knee arthroplasty Patient Condition at Discharge: Good Plan - Discharge Summary Discharge Rx Participant: No New Discharge Prescriptions: New HYDROcodone/APAP 5-325MG [[place] 5-325] 1 tab PO Q6HR PRN #24 tab PRN Reason: Pain Docusate [Colace] 100 mg PO DAILY #30 capsule Continue Aspirin [Adult Low Dose Aspirin EC] 81 mg PO DAILY #30 tab No Action amLODIPine [Norvasc] 5 mg PO QAM Vit C/E/Zn/Coppr/Lutein/Zeaxan [Preservision Areds 2 Softgel] 1 each PO BID [place]-3/Dha/Epa/Fish Oil [Fish Oil 1,000 mg Softgel] 1 each PO DAILY Cholecalciferol [Vitamin D3 (25 Mcg = 1000 Iu)] 50 mcg PO DAILY Discharge Medication List amLODIPine [Norvasc] 5 mg PO QAM 08/20/19 [History] Cholecalciferol [Vitamin D3 (25 Mcg = 1000 Iu)] 50 mcg PO DAILY 02/14/22 [History] [place]-3/Dha/Epa/Fish Oil [Fish Oil 1,000 mg Softgel] 1 each PO DAILY 02/14/22 [History] Vit C/E/Zn/Coppr/Lutein/Zeaxan [Preservision Areds 2 Softgel] 1 each PO BID 02/14/22 [History] Aspirin [Adult Low Dose Aspirin EC] 81 mg PO DAILY #30 tab 02/20/22 [Rx] Docusate [Colace] 100 mg PO DAILY #30 capsule 02/20/22 [Rx] HYDROcodone/APAP 5-325MG [M[place] 5-325] 1 tab PO Q6HR PRN #24 tab 12/06/22 [Rx] Follow up Appointment(s)/Referral(s): Juanpablo Yoon PAC [PHYSICIAN HEAD OF LOSS PREVENTION] - 2 Weeks Patient Instructions/Handouts: Knee Replacement (DC) Activity/Diet/Wound Care/Special Instructions: Orthopedic Discharge Instructions: 1. Wound care and infection precautions, keep incision dry and covered while showering, no lotions, creams, moisturizers. No soaking, pools, hot tubs. Do not scrub over incision. 2. Weight-bear as tolerated with walker / cane until follow-up. 3. Ice and elevate when necessary. Do not exceed 20 minutes per hour with ice pack. 4. Utilize compression sleeve until seen at first follow up appointment. 5. Pain meds and anticoagulants per prescription. 6. Pain medication has potential to cause constipation. Increase oral fluid and fiber intake. Contact primary care provider if you have not had a bowel movement within 48 hours after discharge. 7. No anti-inflammatory medication until discussed at first post operative visit, this including Motrin, Aleve, Mobic, Diclofenac 8. Follow up in office at 2 weeks postop with Antwan Yoon PA-C / Bar Mustafa PA-C 9. Follow up with your primary care doctor 7-10 days after discharge. 10. Contact [facility] with any questions, . Keep incision clean, dry, intact. While showering, cover silver foam dressing with Saran wrap. Silver foam dressing may removed in 7 days, 02/26/2022. May shower directly over incision once silver foam dressing is removed Discharge Disposition: HOME WITH HOME HEALTH SERVICES
--- NOTE | 2022-02-20 10:23 | P.PN ---
Subjective Progress Note Date: 02/20/22 Principal diagnosis: Left knee osteoarthritis Patient was seen at bedside this morning resting comfortably sitting up in chair. Patient says he did work with physical therapy this morning and walked down the [place] and up-and-down steps. Patient says he does have a walker and a c ane at home. Patient says he has urinated since surgery yesterday. Patient has not had bowel movement yet, however, patient says he has been passing gas. Patient denies chest pain, fever, shortness of breath, nausea, vomiting, change in vision, loss of bowel/bladder control. Objective - Vital Signs Vital signs: Vital Signs Temp 97.6 F 02/20/22 07:13 Pulse 93 02/20/22 07:13 Resp 18 02/20/22 07:13 BP 149/80 02/20/22 07:13 Pulse Ox 95 02/20/22 07:13 FiO2 Intake & Output 02/19/22 02/20/22 02/20/22 18:59 06:59 18:59 Intake Total 1051 Output Total 40 1400 Balance 1011 -1400 Weight 72.575 kg Intake: IV 1051 Output: Urine 1400 Estimated Blood Loss 40 Other: Voiding Method Toilet Toilet Urinal Urinal # Voids 2 1 # Bowel Movements 1 - Exam Left knee: Incision is clean, dry, and intact. The silver foam dressing is in good condition. There is minimal soft tissue swelling and ecchymosis surrounding the medial and lateral aspects of the incision. Calf is soft, no tenderness with palpation. Plantar flexion, dorsiflexion, EHL, FHL are intact. Sensory exam to light touch throughout the extremity is intact, dorsal pedis pulses 2+. - Labs CBC & Chem 7: 02/20/22 06:04 Labs: Abnormal Lab Results - Last 24 Hours (Table) 02/20/22 Range/Units 06:04 WBC 17.66 H (4.50-10.00) X 10*3/uL MCH 32.8 H (27.0-32.0) pg MPV 9.1 L (9.5-12.2) fL Assessment and Plan Assessment: 1. Left knee osteoarthritis - Postoperative day #1 status post left total knee arthroplasty Plan: 1. Left knee osteoarthritis - left total knee arthroplasty performed yesterday, 02/19/2022. Patient still bedside this morning. Discharge home today with health services 2. Appreciate medical management 3. Pain management - [place]; Tylenol 4. DVT prophylaxis - Lovenox in hospital. Resume aspirin 81 mg twice a day 30 days once home 5. GI prophylaxis - senna in hospital. Colace once home 6. PT/OT - weightbearing as tolerated with walker. 7. Encourage incentive spirometer use 8. Discharge planning - discharge home today with health services. Time with Patient: Less than 30
[2022-02-20 11:10] LABS: Basophils # (A) 0.02 X 10*3/uL (0.00-0.10); Basophils % (A) 0.1 %; Eosinophils # (A) 0 X 10*3/uL (0.04-0.35); Eosinophils % (A) 0 %; Immature Grans, Automated 0.6 %; Lymphocytes # (A) 0.89 X 10*3/uL (0.90-5.00); Monocytes % (A) 9.1 %; Neutrophils # (A) 15.04 X 10*3/uL (1.80-7.70); Neutrophils % (A) 85.2 %
[2022-02-20] MEDS ORDERED: MULTIVITAMINS, THERA 1 EACH TAB PO SCH (12:00)
== END 2022-02-20 12:08 | disposition home health service (06) ==
LOC: OR 08:19 → 4SSUR 12:44 → OR 02-20 12:08
PROVIDERS: ATTEND Orthopaedic Surgery
DX: M17.12 Unilateral primary osteoarthritis, left knee (principal); G89.18 Other acute postprocedural pain; I10 Essential (primary) hypertension; Z87.19 Personal history of other diseases of the digestive system; Z98.890 Other specified postprocedural states; Z79.83 Long term (current) use of bisphosphonates; Z79.82 Long term (current) use of aspirin
CPT/HCPCS: 27447; 97161; 64999; 64448; 76942; 85025; 88300; 73560; C1776; C1713 ×2; C1751; J2250; J1100; J0690 ×3; J2405; J1650 ×2; J2795

== ENCOUNTER → 2022-03-07 | Outpatient (CLI) | payer MEDICARE ==
--- NOTE | 2022-03-07 14:59 | US ---
EXAMINATION TYPE: US venous doppler duplex LE LT DATE OF EXAM: 03/07/2022 2:48 PM COMPARISON: NONE CLINICAL HISTORY: M79.662 PAIN IN LEFT LOWER LEG. Pain, redness, and swelling left leg s/o left total knee- No known prior SIDE PERFORMED: Left TECHNIQUE: The lower extremity deep venous system is examined utilizing real time linear array sonog primitivo with graded compression, doppler sonography and color-flow sonography. VESSELS IMAGED: Common Femoral Vein Deep Femoral Vein Greater Saphenous Vein * Femoral Vein Popliteal Vein Small Saphenous Vein * Proximal Calf Veins (* superficial vessels) Left Leg: Negative for DVT, probable Dyson's cyst left pop fossa= 4.2 x 1.9 x 2.6 cm Results called to Kesha at 's office at time of exam IMPRESSION: No evidence for DVT.
== END | disposition home or self-care (01) ==
LOC: RADUSWWP 14:26
PROVIDERS: ATTEND Orthopaedic Surgery
DX: M79.662 Pain in left lower leg (principal)

== ENCOUNTER → 2023-02-18 | Outpatient (CLI) | payer MEDICARE ==
--- NOTE | 2023-02-18 14:32 | XR ---
EXAMINATION TYPE: XR foot complete LT DATE OF EXAM: 02/18/2023 COMPARISON: NONE HISTORY: Pain TECHNIQUE: Three views are submitted. FINDINGS: The osseous structures are intact. There is no acute fracture or dislocation. Hammertoe deformitie s noted. Vascular calcifications seen. IMPRESSION: 1. No acute fracture or dislocation. If symptoms persist, follow-up exam in 7 to 10 days could be ob tained.
== END | disposition home or self-care (01) ==
LOC: RADXRMAIN 14:07
PROVIDERS: ATTEND Internal Medicine
DX: M79.672 Pain in left foot (principal)

== ENCOUNTER → 2024-07-22 | Outpatient (CLI) | payer MEDICARE ==
--- NOTE | 2024-07-22 08:29 | US ---
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 TECHNIQUE: Grayscale, color Doppler and spectral Doppler evaluation of the bilateral carotid systems and vertebral arteries. Indirect Doppler criteria was utilized. FINDINGS: EXAM MEASUREMENTS: RIGHT: Peak Systolic Velocity (PSV) cm/sec ----- Right CCA: 91 ----- Right ICA: 97 ----- Right ECA: 97 ICA/CCA ratio: 1.1 RIGHT: End Diastole cm/sec ----- Right CCA: 18 ----- Right ICA: 21 ----- Right ECA: 21 LEFT: Peak Systolic Velocity (PSV) cm/sec ----- Left CCA: 61 ----- Left ICA: 298 ----- Left ECA: 108 ICA/CCA ratio: 4.9 LEFT: End Diastole cm/sec ----- Left CCA: 13 ----- Left ICA: 46 ----- Left ECA: 12 VERTEBRALS (direction of flow): Right Vertebral: Antegrade Left Vertebral: Antegrade Rhythm: Normal LEAD SPRINKLER NOTES: Plaque seen bilateral CCAs extending into the bulb and ICAs, and elevated velociti es within left ICA. Color Doppler imaging shows patency with blood flow throughout the carotid artery. Spectral waveforms are within normal limits. IMPRESSION: Right: Less than 50% stenosis of the carotid bifurcation. Left: Greater than 70% stenosis of the carotid bifurcation. Advise further investigation with CTA or MRA of the neck to better evaluate and characterize new sign ificant stenosis left proximal internal carotid artery level. Criteria for Assigning % of Stenosis / Diameter reduction (Estimation based on the indirect measurements of the internal carotid artery velocities (ICA PSV). 1. Normal (no stenosis)=ICA PSV < 180 cm/s: ratio < 2.0: ICA EDV<40 cm/s. 2. Less than 50% stenosis=ICA PSV < 180 cm/s: ratio < 2.0: ICA EDV<40 cm/s. 3. 50 to 69% stenosis=ICA PSV of 180 to 230 cm/s: ration 2.0 ? 4.0: ICA EDV 40-100 cm/s. PSV 125-180 cm/sec and ICA/CCA PSV Ratio ? 2.0 is also consistent with 50-69% stenosis 4. Greater than 70% stenosis to near occlusion= ICA PSV > 230 cm/s: ratio > 4.0: ICA EDV > 100 cm/s. 5. Near occlusion= ICA PSV velocities may be low or undetectable: variable ratio and ICA EDV. 6. Total occlusion=unable to detect flow. [facility], , 07/22/2024 8:27 AM
== END | disposition home or self-care (01) ==
LOC: RADUSWWP 07:51
PROVIDERS: ATTEND Internal Medicine
DX: I65.23 Occlusion and stenosis of bilateral carotid arteries (principal); I10 Essential (primary) hypertension
CPT/HCPCS: 93880